=== PATIENT | male | born 1960 | race Caucasian/White ===

== ENCOUNTER 2019-10-04 14:23 | Emergency (ER) | payer MEDICAID ==
[~2019-10-04] VITALS: Ht 167.6 cm; Wt 86.2 kg
[2019-10-04 14:32] VITALS: BP 126/77
== END 2019-10-04 15:30 | disposition home or self-care (01) ==
LOC: ER 14:26
DX: M62.830 Muscle spasm of back (principal); I10 Essential (primary) hypertension; E11.9 Type 2 diabetes mellitus without complications; G89.29 Other chronic pain
CPT/HCPCS: 71045-TC